=== PATIENT | female | born 1955 | race Caucasian/White ===

== ENCOUNTER 2016-11-18 08:03 | Day surgery (SDC) | payer BC ==
[2016-11-11 09:14] LABS: HEMATOCRIT 41.9 % (36.0-48.0); HEMOGLOBIN 13.8 g/dL (12.0-16.0)
[2016-11-11 09:30] LABS: A/G RATIO 1.4 (0.7-1.9); ALKALINE PHOSPHATASE 85 U/L (45-117); BUN (BLOOD UREA NITROGEN) 14 MG/DL (6-23); CALCIUM, SERUM 8.9 MG/DL (8.5-10.4); CHLORIDE, SERUM 106 MMOL/L (96-112); CO2 (CARBON DIOXIDE) 29 MMOL/L (24-34); GFR AFRICAN AMERICAN 81 ML/MIN (>=60); GFR NON AFRICAN AMERICAN 70 ML/MIN (>=60); GLOBULIN 2.9 G/DL (2.5-4.1); GLUCOSE, SERUM 97 MG/DL (60-99); POTASSIUM, SERUM 4.4 MMOL/L (3.5-5.3); SGOT(AST) 18 U/L (5-40); SGPT(ALT) 23 U/L (5-65); SODIUM, SERUM 144 MMOL/L (135-148); TOTAL BILIRUBIN 0.4 MG/DL (0-1.2); TOTAL PROTEIN 6.9 G/DL (6.0-8.5)
--- NOTE | ~2016-11-18 | OP ---
Record Of Operation [facility] [address] [place]. [address] NAME: BILLY DAVIS : 57 STATUS : [facility] [place] PAT#: [id number] AGE: 60 ADM/REG DATE : 11/18/16 MR#: [id number] REPORT SERV DATE: 11/18/16 DICTATED BY: FAMILIA CERVANTES DATE: 11/18/16 REPORT STATUS : Draft TRANSCRIBED BY: MODL DATE: 11/18/16 DATE OF PROCEDURE: 11/18/2016 PREOPERATIVE DIAGNOSIS: Chronic cholecystitis with cholelithiasis. POSTOPERATIVE DIAGNOSIS: Chronic cholecystitis with cholelithiasis. PROCEDURE: Laparoscopic cholecystectomy (two-site). SURGEON: Familia Cervantes M.D. DESCRIPTION OF OPERATIVE PROCEDURE: The patient was brought to the operating suite, placed in supine position, underwent general endotracheal anesthesia without incident. The skin of the abdomen was scrubbed, prepped, and draped in the usual sterile fashion. 0.5% Marcaine with epinephrine was utilized as supplemental local anesthesia at all intended trocar sites. Initially, an infraumbilical incision was performed dissecting through the skin and subcutaneous tissue to the umbilical fascia. This was grasped with a Sheila clamp and elevated. Note was made of a small umbilical hernia with incarcerated preperitoneal fat. Infraumbilical incisions were performed and dissection commenced through subcutaneous tissues. Umbilical fascia was grasped and elevated and a disposable Veress insufflation needle was inserted through the umbilical fascia into the peritoneal cavity. Intraperitoneal tip location ascertained using the saline hanging drop method, following which CO2 was insufflated for pressures of 15 mmHg throughout the case. After adequate insufflation pressures were achieved, Veress needle was removed, and a disposable 10/11 mm trocar was inserted through the umbilical fascia in the peritoneal cavity, following which a rigid forward-viewing 10 mm laparoscope was inserted. Visualization of the intraabdominal parietes revealed no evidence of injury from initial insufflation or puncture. There were some filmy omental adhesions to the right paramedian pelvis at the site of the previous appendectomy scar and then also some omental adhesions to the falciform ligament. An additional 5 mm trocar was placed to the right of falciform ligament. An additional 5 mm grasping instrument inserted through the umbilical fascia next to the umbilical trocar. The omental adhesion to the side of the falciform was taken down bluntly. The fundus and body of the gallbladder grasped and elevated. No adhesions were noted to the gallbladder itself. DICTATION ENDS HERE Record Of Operation [facility] [address] [place]. [id number] NAME: BILLY DAVIS : 57 STATUS : REG [facility] [place] PAT#: [id number] AGE: 60 ADM/REG DATE : 11/18/16 MR#: [id number] REPORT SERV DATE: 11/18/16 DICTATED BY: FAMILIA CERVANTES DATE: 11/18/16 REPORT STATUS : Draft TRANSCRIBED BY: RAMON DATE: 11/18/16 WR/RAMON Familia Cervantes M.D. / [id number] CC: Barry Otto M.D.
--- NOTE | ~2016-11-18 | OP ---
Record Of Operation [facility] [address] [place]. [address] NAME: BILLY DAVIS : 57 STATUS : [facility]#: [id number] AGE: 60 ADM/REG DATE : 11/18/16 MR#: [id number] REPORT SERV DATE: 11/18/16 DICTATED BY: FAMILIA CERVANTES DATE: 11/18/16 REPORT STATUS : Draft TRANSCRIBED BY: MODL DATE: 11/18/16 DATE OF PROCEDURE: 11/18/2016 PREOPERATIVE DIAGNOSIS: Chronic cholecystitis with cholelithiasis. POSTOPERATIVE DIAGNOSIS: Chronic cholecystitis with cholelithiasis with small incarcerated umbilical hernia. PROCEDURE: 1. Laparoscopic cholecystectomy (two-site). 2. Primary repair of incarcerated umbilical hernia. SURGEON: Familia Cervantes M.D. DESCRIPTION OF PROCEDURE: The patient brought to operating suite, placed in supine position, underwent satisfactory general endotracheal anesthesia without incident. The skin of the abdomen was then scrubbed, prepped, and draped in the usual sterile fashion. 0.5% Marcaine with epinephrine was utilized as supplemental local anesthesia at all intended trocar sites. Initially, an infraumbilical incision was performed dissecting through the skin and subcutaneous tissue to the umbilical fascia. This was grasped with a Sheila clamp and elevated and a disposable Veress insufflation needle was inserted through the umbilical fascia into the peritoneal cavity. Intraperitoneal tip location ascertained using saline hanging drop method. CO2 insufflation pressures of 15 mmHg throughout the case. After adequate insufflation pressure was achieved, Veress needle was removed, disposable bladed shielded 11 mm trocar inserted through the umbilical fascia into the peritoneal cavity. Rigid forward-viewing 10 mm laparoscope was inserted. Visualization of the intraabdominal parietes revealed no evidence of injury from initial insufflation or puncture. A cursory examination of the pelvis was normal. Attention was turned to the upper abdomen where an additional 5 mm trocar was placed to the right of falciform ligament. An additional 5 mm grasping instrument was inserted through the umbilical fascia next to the umbilical trocar. The fundus and body of the gallbladder grasped and elevated. Dissection of triangle of Calot was successful in identifying and skeletonizing the cystic duct, cystic duct-common duct junction, as well as cystic artery. Both of these structures were controlled with multiple applications of the Weck 5 mm polymer clip system and divided. Then using spatula cautery dissection, the peritoneal attachments to the gallbladder and liver were divided. The gallbladder was removed from the subhepatic space. Hemostasis was assured. The camera was switched to the 5 mm epigastric port. The gallbladder was grasped by its neck and withdrawn through the umbilicus and delivered. CO2 was allowed to egress from the peritoneal cavity. No muscular bleeding was noted. Record Of Operation [address] [place]. [address] NAME: BILLY DAVIS : 57 STATUS : [facility] PAT#: [id number] AGE: 60 ADM/REG DATE : 11/18/16 MR#: [id number] REPORT SERV DATE: 11/18/16 DICTATED BY: AFMILIA CERVANTES DATE: 11/18/16 REPORT STATUS : Draft TRANSCRIBED BY: RAMON DATE: 11/18/16 Next, attention was turned to the umbilicus. The preperitoneal protrusion of fat was dissected from the overlying skin and surrounding muscular aponeurotic tissue revealing the umbilical defect. [id number] suture of 0 Vicryl was used to close the fascia, subcutaneous tissue closed at all sites with interrupted 4-0 Vicryl, running subcuticular stitch of 4-0 Vicryl for the skin. Dermabond skin adhesive placed. The patient tolerated the procedure well and was returned to PACU in stable condition. At the termination of the procedure, sponge, needle, lap, and instrument counts were correct x3. ESTIMATED BLOOD LOSS: Negligible. WR/RAMON Familia Cervantes M.D. / [id number] CC: Barry Otto M.D.
[~2016-11-18 08:03] MED LIST: CELEXA40 MG PO; LOFIB160 PO; SEVERAL VITAMINS; ZYRTEC ALLGY10 MG PO
== END 2016-11-18 13:29 | disposition home or self-care (01) ==
LOC: SDC 08:03
PROVIDERS: Specialist
PROC: 0WQF4ZZ Repair Abdominal Wall, Percutaneous Endoscopic Approach (ICD-10-PCS; 2016-11-18)
PROC: 0FT44ZZ Resection of Gallbladder, Percutaneous Endoscopic Approach (ICD-10-PCS; principal; 2016-11-18 09:00)
DX: K80.10 Calculus of gallbladder with chronic cholecystitis without obstruction (principal); K42.0 Umbilical hernia with obstruction, without gangrene; F32.9 Major depressive disorder, single episode, unspecified; K21.9 Gastro-esophageal reflux disease without esophagitis; E78.5 Hyperlipidemia, unspecified; G43.909 Migraine, unspecified, not intractable, without status migrainosus; Z88.1 Allergy status to other antibiotic agents; Z98.890 Other specified postprocedural states; Z90.49 Acquired absence of other specified parts of digestive tract; Z90.89 Acquired absence of other organs; Z79.899 Other long term (current) drug therapy; Z98.51 Tubal ligation status
CPT/HCPCS: 76000; 80053; 85014; 85018; 88304; 93005; J0690; J1170; J2250; J2405; J2710; J3010